=== PATIENT | female | born 1985 | race Caucasian/White ===

== ENCOUNTER → 2023-08-12 | Emergency (ER) | payer BC ==
--- OUTSIDE RECORDS SUMMARY | 2023-08-12 18:16 | XMS REPORT | Continuity of Care Document ---
Author Name Unknown Address [address] [facility] [address] [place] [address] [facility] thconnect Address [address] [facility]. [address] [place] [address] Care Team Providers Care Speech Pathology Supervisor Name Role Phone Ana Martin MD Primary Care Physician [phone] Ana Martin MD Attending Clinician [phone] Doctor Unassigned, [place] Attending Clinician U augieailANA Gipson Attending Clinician Unavailable EMMANUEL SCHULZ Attending Clinician EMMANUEL Berg Attending Clinician UnavailHaley Colmenares Attending Clinician Unavailable Haley Grayson Attending Clinician [phone] King DIVINE MD, James C Attending Clinician [phone] Unknown, Attending Attending Clinician ANA Mari III Attending Clinician UnavailJanki Barfield RN Attending Clinician Unavailable HIREN STEPHENSON Attending Clinician Hiren Hernandez Attending Clinician [phone] Marely Martinez Attending Clinician [phone] Johann Morris-[facility] Attending Clinician Becki Shaikh Attending Clinician [phone] BECKI RODRIGEZ Attending Clinician Jonelle brantley Payers Payer Name Policy Type Policy Number Effective Date Expirati on Date Source [facility] [id number] 2021 00:00:00 Problems Condition Name Condition Details Condition Category Status Onset Date Resolution Date Last Treatment Date Treating Clinician Comments Source Secondary hypertensi on Secondary hypertensi on Disease Active 02-04 00:00: 00 [facility] Morbid obesity with body mass index of 40.0-49.9 Morbid obesity with body mass index of 40.0-49.9 Disease Active 08-25 00:00: 00 [facility] Allergies, Adverse Reactions, Alerts Allergy Name Allergy Type Status Severity Reaction(s) Onset Date Inactive Date Treating Clinician Comments Source NO KNOWN ALLERGIE S Drug Class Active [facility] Social History Social Habit Start Date Stop Date Quantity Comments Source [facility] use and exposure 2023-06-24 00:00:00 2023-06-24 00:00:00 Smokeless tobacco non-user [facility] Alcohol intake 2023-06-24 00:00:00 2023-06-24 00:00:00 Ex-drinker (finding) [facility] History of Social function 2023-06-24 00:00:00 2023-06-24 00:00:00 [facility] Exposure to SARS-CoV-2 (event) 2022-06-25 00:00:00 2022-07-05 12:03:00 Not sure [facility] Sex Assigned At 1985 00:00:00 1985 00:00:00 [facility] Smoking Status Start Date Stop Date Source Never smoked tobacco [facility] Medications Ordered Medication Name Filled Medication Name Start Date Stop Date Current Medication? Ordering Clinician Indication Dosage Frequency Signature (SIG) Comments Components Source hydroCHLORO thiazide 25 mg tablet 2022-08 00:00: 00 Yes [id number] 25mg Take 1 tablet by mouth in the morning. [facility] ferrous sulfate 325 mg (65 mg iron) EC tablet 2022-08 00:00: 00 Yes 325mg Take 1 tablet by mouth in the morning and 1 tablet at noon and 1 tablet in the evening. Take with meals. [facility] ferrous sulfate 325 mg (65 mg iron) EC tablet 2022-08 00:00: 00 Yes 325mg Take 1 tablet by mouth in the morning and 1 tablet at noon and 1 tablet in the evening. Take with meals. [facility] ferrous sulfate 325 mg (65 mg iron) EC tablet 2022-08 00:00: 00 Yes 325mg Take 1 tablet by mouth in the morning and 1 tablet at noon and 1 tablet in the evening. Take with meals. [facility] ferrous sulfate 325 mg (65 mg iron) EC tablet 2022-08 00:00: 00 Yes 325mg Take 1 tablet by mouth in the morning and 1 tablet at noon and 1 tablet in the evening. Take with meals. [facility] ferrous sulfate 325 mg (65 mg iron) EC tablet 2022-08 00:00: 00 Yes 325mg Take 1 tablet by mouth in the morning and 1 tablet at noon and 1 tablet in the evening. Take with meals. [facility] hydroCHLORO thiazide 25 mg tablet 08-24 00:00: 00 Yes [id number] TAKE 1 TABLET EVERY DAY [facility] hydroCHLORO thiazide 25 mg tablet 0 08-24 00:00: 00 Yes [id number] TAKE 1 TABLET EVERY DAY [facility] hydroCHLORO thiazide 25 mg tablet 0 08-24 00:00: 00 Yes [id number] TAKE 1 TABLET EVERY DAY [facility] hydroCHLORO thiazide 25 mg tablet 0 08-24 00:00: 00 Yes [id number] TAKE 1 TABLET EVERY DAY [facility] hydroCHLORO thiazide 25 mg tablet 0 08-24 00:00: 00 Yes [id number] TAKE 1 TABLET EVERY DAY [facility] hydroCHLORO thiazide 25 mg tablet 0 08-24 00:00: 00 Yes [id number] TAKE 1 TABLET EVERY DAY [facility] hydroCHLORO thiazide 25 mg tablet 0 08-24 00:00: 00 Yes [id number] TAKE 1 TABLET EVERY DAY [facility] hydroCHLORO thiazide 25 mg tablet 0 08-24 00:00: 00 Yes [id number] TAKE 1 TABLET EVERY DAY [facility] hydroCHLORO thiazide 25 mg tablet 0 08-24 00:00: 00 07-22 00:00 :00 No [id number] TAKE 1 TABLET EVERY DAY [facility] Methylpredn isolone 4 mg tablet 2021-08-17 00:00: 00 07-11 05:59 :00 No [id number] 4mg Take 1 tablet by mouth every 12 (twelve) hours for 5 days. [facility] nirmatrelvi r-ritonavir (PAXLOVID, EUA,) 150 mg x 2- 100 mg tablet 02-06 00:00: 00 Yes [id number] 3{tbl} Take 3 tablets by mouth 2 (two) times daily. [facility] nirmatrelvi r-ritonavir (PAXLOVID, EUA,) 150 mg x 2- 100 mg tablet 02-06 00:00: 00 Yes [id number] 3{tbl} Take 3 tablets by mouth 2 (two) times daily. [facility] nirmatrelvi r-ritonavir (PAXLOVID, EUA,) 150 mg x 2- 100 mg tablet 02-06 00:00: 00 07-05 00:00 :00 No [id number] 3{tbl} Take 3 tablets by mouth 2 (two) times daily. [facility] benzonatate 200 mg capsule 02-04 00:00: 00 02-15 04:59 :00 No [id number] 200mg Take 1 capsule by mouth 3 (three) times daily as needed for Cough for up to 10 days. [facility] benzonatate 200 mg capsule 02-04 00:00: 00 02-15 04:59 :00 No [id number] 200mg Take 1 capsule by mouth 3 (three) times daily as needed for Cough for up to 10 days. [facility] benzonatate 200 mg capsule 02-04 00:00: 00 02-15 04:59 :00 No [id number] 200mg Take 1 capsule by mouth 3 (three) times daily as needed for Cough for up to 10 days. [facility] hydroCHLORO thiazide 25 mg tablet 5-19 00:00: 00 Yes [id number] 25mg Take 1 tablet by mouth daily. [facility] hydroCHLORO thiazide 25 mg tablet 2021-0 -19 00:00: 00 Yes [id number] 25mg Take 1 tablet by mouth daily. [facility] hydroCHLORO thiazide 25 mg tablet 2021-0 5-19 00:00: 00 Yes [id number] 25mg Take 1 tablet by mouth daily. [facility] hydroCHLORO thiazide 25 mg tablet 2021-0 5-19 00:00: 00 Yes [id number] 25mg Take 1 tablet by mouth daily. [facility] hydroCHLORO thiazide 25 mg tablet 0 19 00:00: 00 Yes [id number] 25mg Take 1 tablet by mouth daily. [facility] hydroCHLORO thiazide 25 mg tablet 0 19 00:00: 00 Yes [id number] 25mg Take 1 tablet by mouth daily. [facility] hydroCHLORO thiazide 25 mg tablet 0 19 00:00: 00 08-24 00:00 :00 No [id number] 25mg Take 1 tablet by mouth daily. [facility] hydroCHLORO thiazide 25 mg tablet 0 3-02 00:00: 00 01-04 00:00 :00 No [id number] 25mg Take 1 tablet by mouth daily. [facility] ESTARYLLA 0.25-35 mg-mcg per tablet 2020-08 00:00: 00 Yes 1{tbl} Take 1 tablet by mouth every morning. [facility] ESTARYLLA 0.25-35 mg-mcg per tablet 2020-08- 00:00: 00 Yes 1{tbl} Take 1 tablet by mouth every morning. [facility] ESTARYLLA 0.25-35 mg-mcg per tablet 2020-08 00:00: 00 Yes 1{tbl} Take 1 tablet by mouth every morning. [facility] ESTARYLLA 0.25-35 mg-mcg per tablet 2020-08 2- 00:00: 00 Yes 1{tbl} Take 1 tablet by mouth every morning. [facility] ESTARYLLA 0.25-35 mg-mcg per tablet 2020-08 00:00: 00 Yes 1{tbl} Take 1 tablet by mouth every morning. [facility] 0.25-35 mg-mcg per tablet 2020-08 00:00: 00 Yes 1{tbl} Take 1 tablet by mouth every morning. [facility] ESTARYLLA 0.25-35 mg-mcg per tablet 2020-08 00:00: 00 Yes 1{tbl} Take 1 tablet by mouth every morning. [facility] ESTARYLLA 0.25-35 mg-mcg per tablet 2020-08 00:00: 00 Yes 1{tbl} Take 1 tablet by mouth every morning. [facility] 0.25-35 mg-mcg per tablet 2020-08 00:00: 00 Yes 1{tbl} Take 1 tablet by mouth every morning. [facility] EST[facility]LLA 0.25-35 mg-mcg per tablet 2020-08 00:00: 00 Yes 1{tbl} Take 1 tablet by mouth every morning. [facility] EST[facility]A 0.25-35 mg-mcg per tablet 2020-08 00:00: 00 Yes 1{tbl} Take 1 tablet by mouth every morning. [facility] ESTARYLLA 0.25-35 mg-mcg per tablet 2020-08 00:00: 00 Yes 1{tbl} Take 1 tablet by mouth every morning. [facility] ESTARYLLA 0.25-35 mg-mcg per tablet 2020-08 00:00: 00 06-24 00:00 :00 No 1{tbl} Take 1 tablet by mouth every morning. [facility] ESTARYLLA 0.25-35 mg-mcg per tablet 2020-08 00:00: 00 06-24 00:00 :00 No 1{tbl} Take 1 tablet by mouth every morning. [facility] Immunizations Ordered Immunization Name Filled Immunization Name Date Status Comments Source SARS-COV-2 COVID-19 MODERNA VACCINE 2021-06-10 00:00:00 Completed [facility] SARS-COV-2 COVID-19 MODERNA VACCINE 2021-06-10 00:00:00 Completed [facility] SARS-COV-2 COVID-19 MODERNA VACCINE 2021-06-10 00:00:00 Completed [facility] SARS-COV-2 COVID-19 MODERNA VACCINE 2021-06-10 00:00:00 Completed [facility] SARS-COV-2 COVID-19 MODERNA 12+ YRS VACCINE 2021-06-10 00:00:00 Completed [facility] SARS-COV-2 COVID-19 MODERNA 12+ YRS VACCINE 2021-06-10 00:00:00 Completed [facility] SARS-COV-2 COVID-19 MODERNA 12+ YRS VACCINE 2021-06-10 00:00:00 Completed [facility] SARS-COV-2 COVID-19 MODERNA 12+ YRS VACCINE 2021-06-10 00:00:00 Completed [facility] SARS-COV-2 COVID-19 MODERNA 12+ YRS VACCINE 2021-06-10 00:00:00 Completed [facility] Influenza Virus Vaccine Quad IM, Preserv and ABX Free 6 MO-64 YRS 2021-05-19 00:00:00 Completed [facility] Influenza Virus Vaccine Quad IM, Preserv and ABX Free 6 MO-64 YRS 2021-05-19 00:00:00 Completed [facility] Influenza Virus Vaccine Quad IM, Preserv and ABX Free 6 MO-64 YRS 2021-05-19 00:00:00 Completed [facility] Influenza Virus Vaccine Quad IM, Preserv and ABX Free 6 MO-64 YRS 2021-05-19 00:00:00 Completed [facility] Influenza Virus Vaccine Quad IM, Preserv and ABX Free 6 MO-64 YRS 2021-05-19 00:00:00 Completed [facility] Influenza Virus Vaccine Quad IM, Preserv and ABX Free 6 MO-64 YRS 2021-05-19 00:00:00 Completed [facility] Influenza Virus Vaccine Quad IM, Preserv and ABX Free 6 MO-64 YRS 2021-05-19 00:00:00 Completed [facility] Influenza Virus Vaccine Quad IM, Preserv and ABX Free 6 MO-64 YRS 2021-05-19 00:00:00 Completed [facility] Influenza Virus Vaccine Quad IM, Preserv and ABX Free 6 MO-64 YRS 2021-05-19 00:00:00 Completed [facility] SARS-COV-2 COVID-19 MODERNA VACCINE 2020-10-06 00:00:00 Completed [facility] SARS-COV-2 COVID-19 MODERNA VACCINE 2020-10-06 00:00:00 Completed [facility] SARS-COV-2 COVID-19 MODERNA VACCINE 2020-10-06 00:00:00 Completed [facility] SARS-COV-2 COVID-19 MODERNA VACCINE 2020-10-06 00:00:00 Completed [facility] SARS-COV-2 COVID-19 MODERNA 12+ YRS VACCINE 2020-10-06 00:00:00 Completed [facility] SARS-COV-2 COVID-19 MODERNA 12+ YRS VACCINE 2020-10-06 00:00:00 Completed [facility] SARS-COV-2 COVID-19 MODERNA 12+ YRS VACCINE 2020-10-06 00:00:00 Completed [facility] SARS-COV-2 COVID-19 MODERNA 12+ YRS VACCINE 2020-10-06 00:00:00 Completed [facility] SARS-COV-2 COVID-19 MODERNA 12+ YRS VACCINE 2020-10-06 00:00:00 Completed [facility] SARS-COV-2 COVID-19 MODERNA VACCINE 2020-08-20 00:00:00 Completed [facility] SARS-COV-2 COVID-19 MODERNA VACCINE 2020-08-20 00:00:00 Completed [facility] SARS-COV-2 COVID-19 MODERNA VACCINE 2020-08-20 00:00:00 Completed [facility] SARS-COV-2 COVID-19 MODERNA VACCINE 2020-08-20 00:00:00 Completed [facility] SARS-COV-2 COVID-19 MODERNA 12+ YRS VACCINE 2020-08-20 00:00:00 Completed [facility] SARS-COV-2 COVID-19 MODERNA 12+ YRS VACCINE 2020-08-20 00:00:00 Completed [facility] SARS-COV-2 COVID-19 MODERNA 12+ YRS VACCINE 2020-08-20 00:00:00 Completed [facility] SARS-COV-2 COVID-19 MODERNA 12+ YRS VACCINE 2020-08-20 00:00:00 Completed [facility] SARS-COV-2 COVID-19 MODERNA 12+ YRS VACCINE 2020-08-20 00:00:00 Completed [facility] Influenza Virus Vaccine Quad IM, Preserv and ABX Free 6 MO-64 YRS (FLUCELVAX) Unknown Completed [facility] SARS-COV-2 COVID-19 MODERNA 12+ YRS VACCINE Unknown Completed [facility] SARS-COV-2 COVID-19 MODERNA 12+ YRS VACCINE Unknown Completed [facility] SARS-COV-2 COVID-19 MODERNA 12+ YRS VACCINE Unknown Completed [facility] Influenza Virus Vaccine Quad IM, Preserv and ABX Free 6 MO-64 YRS (FLUCELVAX) Unknown Completed [facility] SARS-COV-2 COVID-19 MODERNA 12+ YRS VACCINE Unknown Completed [facility] SARS-COV-2 COVID-19 MODERNA 12+ YRS VACCINE Unknown Completed [facility] SARS-COV-2 COVID-19 MODERNA 12+ YRS VACCINE Unknown Completed [facility] Influenza Virus Vaccine Quad IM, Preserv and ABX Free 6 MO-64 YRS (FLUCELVAX) Unknown Completed [facility] SARS-COV-2 COVID-19 MODERNA 12+ YRS VACCINE Unknown Completed [facility] SARS-COV-2 COVID-19 MODERNA 12+ YRS VACCINE Unknown Completed [facility] SARS-COV-2 COVID-19 MODERNA 12+ YRS VACCINE Unknown Completed [facility] Influenza Virus Vaccine Quad IM, Preserv and ABX Free 6 MO-64 YRS (FLUCELVAX) Unknown Completed [facility] SARS-COV-2 COVID-19 MODERNA 12+ YRS VACCINE Unknown Completed [facility] SARS-COV-2 COVID-19 MODERNA 12+ YRS VACCINE Unknown Completed [facility] SARS-COV-2 COVID-19 MODERNA 12+ YRS VACCINE Unknown Completed [facility] Influenza Virus Vaccine Quad IM, Preserv and ABX Free 6 MO-64 YRS (FLUCELVAX) Unknown Completed [facility] SARS-COV-2 COVID-19 MODERNA 12+ YRS VACCINE Unknown Completed [facility] SARS-COV-2 COVID-19 MODERNA 12+ YRS VACCINE Unknown Completed [facility] SARS-COV-2 COVID-19 MODERNA 12+ YRS VACCINE Unknown Completed [facility] Influenza Virus Vaccine Quad IM, Preserv and ABX Free 6 MO-64 YRS (FLUCELVAX) Unknown Completed [facility] SARS-COV-2 COVID-19 MODERNA 12+ YRS VACCINE Unknown Completed [facility] SARS-COV-2 COVID-19 MODERNA 12+ YRS VACCINE Unknown Completed [facility] SARS-COV-2 COVID-19 MODERNA 12+ YRS VACCINE Unknown Completed [facility] Influenza Virus Vaccine Quad IM, Preserv and ABX Free 6 MO-64 YRS (FLUCELVAX) Unknown Completed [facility] SARS-COV-2 COVID-19 MODERNA 12+ YRS VACCINE Unknown Completed [facility] SARS-COV-2 COVID-19 MODERNA 12+ YRS VACCINE Unknown Completed [facility] SARS-COV-2 COVID-19 MODERNA 12+ YRS VACCINE Unknown Completed [facility] Influenza Virus Vaccine Quad IM, Preserv and ABX Free 6 MO-64 YRS (FLUCELVAX) Unknown Completed [facility] SARS-COV-2 COVID-19 MODERNA 12+ YRS VACCINE Unknown Completed [facility] SARS-COV-2 COVID-19 MODERNA 12+ YRS VACCINE Unknown Completed [facility] SARS-COV-2 COVID-19 MODERNA 12+ YRS VACCINE Unknown Completed [facility] Vital Signs Vital Name Observation Time Observation Value Comments S maritzabarrett Systolic blood pressure 2023-06-24 21:59:00 134 mm[Hg] [facility] Diastolic blood pressure 2023-06-24 21:59:00 72 mm[Hg] [facility] Heart rate 2023-06-24 21:59:00 70 /min [facility] Body temperature 2023-06-24 21:59:00 36.67 [facility] Respiratory rate 2023-06-24 21:59:00 18 /min [facility] Body height 2023-06-24 21:59:00 167.6 cm [facility] Body weight 2023-06-24 21:59:00 131.997 kg [facility] BMI 2023-06-24 21:59:00 46.97 kg/m2 [facility] Systolic blood pressure 2023-02-22 02:24:00 164 mm[Hg] [facility] Diastolic blood pressure 2023-02-22 02:24:00 94 mm[Hg] [facility] Heart rate 2023-02-22 02:24:00 85 /min [facility] Body temperature 2023-02-22 02:24:00 36.61 [facility] Respiratory rate 2023-02-22 02:24:00 16 /min [facility] Body height 2023-02-22 02:24:00 167.6 cm [facility] Body weight 2023-02-22 02:24:00 127.007 kg [facility] BMI 2023-02-22 02:24:00 45.19 kg/m2 [facility] Oxygen saturation in Arterial blood by Pulse oximetry 2023-02-22 02:24:00 97 /min [facility] Systolic blood pressure 2022-07-05 18:09:00 140 mm[Hg] [facility] Diastolic blood pressure 2022-07-05 18:09:00 92 mm[Hg] [facility] Heart rate 2022-07-05 18:06:00 83 /min [facility] Body temperature 2022-07-05 18:06:00 36.83 [facility] Respiratory rate 2022-07-05 18:06:00 19 /min [facility] Body height 2022-07-05 18:06:00 167.6 cm [facility] Body weight 2022-07-05 18:06:00 123.067 kg [facility] BMI 2022-07-05 18:06:00 43.79 kg/m2 [facility] Oxygen saturation in Arterial blood by Pulse oximetry 2022-07-05 18:06:00 98 /min [facility] Systolic blood pressure 2022-02-04 14:10:00 163 mm[Hg] [facility] Diastolic blood pressure 2022-02-04 14:10:00 104 mm[Hg] [facility] Heart rate 2022-02-04 14:10:00 103 /min [facility] Body temperature 2022-02-04 14:10:00 37.28 [facility] Respiratory rate 2022-02-04 14:10:00 18 /min [facility] Body height 2022-02-04 14:10:00 167.6 cm [facility] Body weight 2022-02-04 14:10:00 123.378 kg [facility] BMI 2022-02-04 14:10:00 43.90 kg/m2 [facility] Oxygen saturation in Arterial blood by Pulse oximetry 2022-02-04 14:10:00 98 /min [facility] Systolic blood pressure 2022-01-04 15:14:00 130 mm[Hg] [facility] Diastolic blood pressure 2022-01-04 15:14:00 68 mm[Hg] [facility] Heart rate 2022-01-04 15:14:00 66 /min [facility] Body temperature 2022-01-04 15:14:00 36.56 Gar[facility] Respiratory rate 2022-01-04 15:14:00 18 /min [facility] Body weight 2022-01-04 15:14:00 121.11 kg [facility] BMI 2022-01-04 15:14:00 43.09 kg/m2 [facility] Procedures Procedure Date / Time Performed Performing Clinicia n Source EXTERNAL PROVIDER RECORDS 2023-07-16 06:01:00 Doctor Unassigned, [place] [facility] EXTERNAL PROVIDER RECORDS 2023-06-27 06:01:00 Doctor Unassigned, [place] [facility] NOTICE OF PRIVACY PRACTICES 2023-02-22 02:15:02 Doctor Unassigned, [place] [facility] CONSENT/REFUSAL FOR DIAGNOSIS AND TREATMENT 2023-02-22 02:14:12 Doctor Unassigned, [place] [facility] POCT MOLECULAR FLU 2022-07-05 18:16:00 Unknown, Attend ing [facility] POCT MOLECULAR STREP 2022-07-05 18:15:00 Unknown, Atte hortenciaing [facility] Encounters Start Date/Time End Date/Time Encounter Type Admission Type Attending [facility] Care Facility Care Department Encounter ID Source 2023-07-22 00:00:00 2023-07-22 00:00:00 [facility]ill [facility] [id number] 350.1.13.10 4.2.7.2.686 [id number] [facility] 2023-07-16 00:00:00 2023-07-16 00:00:00 Orders Only Doctor Unassigned, [place] [facility] 1.840.114 350.1.13.10 4.2.7.2.686 [id number] [facility] 2023-06-27 00:00:00 2023-06-27 00:00:00 Orders Only Doctor Unassigned, [place] [facility] [id number] 350.1.13.10 4.2.7.2.686 [id number] [facility] 2023-06-24 16:15:00 2023-06-24 16:45:00 Office Visit Ana Martin [facility] 1.840.114 350.1.13.10 4.2.7.2.686 [id number] [facility] 2023-06-24 16:15:00 2023-06-24 16:15:00 Outpatient ANA TOM [facility] [id number] [facility] 2023-06-24 09:30:00 2023-06-24 09:30:00 Outpatient EMMANUEL THAO CHERYAL [facility] [id number] [facility] 2023-04-29 00:00:00 2023-04-29 00:00:00 Patient Secure Ana Garcia [facility] 1.114 350.1.13.10 4.2.7.2.686 [id number] [facility] 2023-02-21 21:27:00 2023-02-21 22:06:00 Emergency X Haley SONI [facility] ERT [id number] [facility] 2023-02-21 21:27:00 2023-02-21 22:06:00 Emergency Haley Soni [facility] 1..114 350.1.13.10 4.2.7.2.686 [id number] [facility] 2023-02-21 00:00:00 2023-02-21 00:00:00 Orders Only Doctor Unassigned, [place] [facility] 1..114 350.1.13.10 4.2.7.2.686 [id number] [facility] 2022-08-24 00:00:00 2022-08-24 00:00:00 Refill Ana Martin [facility] 1.114 350.1.13.10 4.2.7.2.686 [id number] [facility] 2022-07-05 11:20:00 2022-07-05 11:40:00 Urgent Care Ana Long, Attending [facility] 1.114 350.1.13.10 4.2.7.2.686 [id number] [facility] 2022-07-05 11:20:00 2022-07-05 11:20:00 Outpatient ANA ALICIA III [facility] [id number] [facility] 2022-07-05 00:00:00 2022-07-05 00:00:00 Letter (Out) Ana Long [facility] 1.84114 350.1.13.10 4.2.7.2.686 [id number] [facility] 2022-02-05 00:00:00 2022-02-05 00:00:00 Letter (Out) Janki Tirado [facility] 1.114 350.1.13.10 4.2.7.2.686 [id number] [facility] 2022-02-05 00:00:00 2022-02-05 00:00:00 Patient Secure Msg Ana Martin [facility] 1.114 350.1.13.10 4.2.7.2.686 [id number] [facility] 2022-02-04 09:20:00 2022-02-04 09:47:43 Outpatient R HIREN STEPHENSON [facility] [id number] [facility] 2022-02-04 09:20:00 2022-02-04 09:47:43 Urgent Care Hiren Stephenson [facility] 1.84114 350.1.13.10 4.2.7.2.686 [id number] [facility] 2022-01-04 10:15:00 2022-01-04 10:37:54 Outpatient R ANA MARTIN [facility] [id number] [facility] 2022-01-04 10:15:00 2022-01-04 10:37:54 Office Visit [facility] 1.114 350.1.13.10 [id number] [id number] [facility] 2021-12-19 00:00:00 2021-12-19 00:00:00 Refill [facility] 1.840.114 350.1.13.10 4.2.7.2.686 [id number] [facility] 2021-11-22 08:00:00 2021-11-22 08:00:00 Outpatient R ANA MARTIN [facility] [id number] [facility] 2021-11-22 00:00:00 2021-11-22 00:00:00 Patient Secure Msg Ana [facility] 1.840.114 350.1.13.10 4.2.7.2.686 [id number] [facility] 2021-10-30 00:00:00 2021-10-30 00:00:00 Orders Only Doctor Unassigned, [place] [facility] 1.840.114 350.1.13.10 4.2.7.2.686 [id number] [facility] 2021-10-18 08:45:00 2021-10-18 09:32:20 Outpatient ANA TOM [facility] [id number] [facility] 2021-10-18 08:45:00 2021-10-18 09:32:20 Office Visit Ana [facility] 1.840.114 350.1.13.10 4.2.7.2.686 [id number] [facility] 2021-09-27 08:45:00 2021-09-27 08:45:00 Outpatient ANA TOM [facility] [id number] [facility] 2021-08-29 00:00:00 2021-08-29 00:00:00 Patient Secure Msg Doctor Unassigned, [place] [facility] 1.840.114 350.1.13.10 4.2.7.2.686 [id number] [facility] 2021-08-25 09:30:00 2021-08-25 09:45:00 Tax Professional Visit Draw, [facility] Becki Rodrigez [facility] [id number] 350.1.13.10 4.2.7.2.686 [id number] [facility] 2021-08-25 08:30:00 2021-08-25 09:13:50 Outpatient R BECKI RODRIGEZ [facility] [id number] [facility] 2021-08-25 08:30:00 2021-08-25 09:13:50 Office Visit Becki Rodrigez [facility] 1.840.114 350.1.13.10 4.2.7.2.686 [id number] [facility] 2021-08-25 08:30:00 2021-08-25 09:13:50 Outpatient R BECKI RODRIGEZ [facility] [id number] [facility] 2021-08-25 00:00:00 2021-08-25 00:00:00 Letter (Out) Doctor Unassigned, [place] [facility] 1.840.114 350.1.13.10 4.2.7.2.686 [id number] [facility] 2021-08-25 00:00:00 2021-08-25 00:00:00 Telephone Becki Rodrigez [facility] 1.284.114 350.1.13.10 [id number] [id number] [facility] Results Test Description Test Time Test Comments Results Result Co mments Source [facility] [id number] 18:22:58* Test Item Value Reference Range Interpretation Comme nts POCT Molecular Strep (test c ode = 60523-0) Negative Negative Lab Interpretation (test cod e = 24354-1) Normal [facility]
[2023-08-12 19:40] LABS: Absolute Lymphocytes (CBC) 3.6 K/uL (0.7-4.9); Lymphocytes % 28.6 % (15.3-44.8); MCV 70.8 fL (80-100); MPV 7.5 fL (7.6-11.3); Platelets 424 thou/uL (152-406); RBC Red Blood Cell Count 4.52 M/uL (3.86-4.86)
[2023-08-12 19:59] LABS: Magnesium 2.3 mg/dL (1.6-2.4); Potassium 3.8 mEq/L (3.5-5.1)
--- NOTE | 2023-08-12 20:49 | RAD REPORT ---
[facility]06 [facility] CLINICAL HISTORY: Palpitations;Dyspnea COMPARISON: No comparisons TECHNIQUE: Portable AP view of the chest. FINDINGS: The lungs are clear. No pneumothorax or effusion. The cardiomediastinal contours are unre markable. IMPRESSION: No acute cardiopulmonary process.
--- NOTE | 2023-08-12 21:23 | ER ---
Nurse's Notes [facility] Name: Amina Record Age: 38 yrs Sex: Female : 1985 Arrival Date: 08/12/2023 Time: 18:12 Bed 11 Private MD: Diagnosis: Palpitations;Dyspnea Presentation: 08/12 18:29 Chief complaint: Patient states: PALPITATIONS x5 DAYS. Coronavirus screen: At this bp time, the client does not indicate any symptoms associated with coronavirus-19. Ebola Screen: No symptoms or risks identified at this time. Initial Sepsis Screen: Does the patient meet any 2 criteria? No. Patient's initial sepsis screen is negative. Does the patient have a suspected source of infection? No. Patient's initial sepsis screen is negative. Risk Assessment: Do you want to hurt yourself or someone else?. Onset of symptoms is unknown. 18:29 Method Of Arrival: Ambulatory bp 18:29 Acuity: DEAN 3 bp Triage Assessment: 18:30 General: Appears in no apparent distress. Behavior is cooperative, appropriate for age, bp anxious. Pain: Denies pain. Historical: - Allergies: 18:30 No Known Allergies; bp - Home Meds: 18:30 hydrochlorothiazide 25 mg Oral tablet daily [Active]; bp - PMHx: 18:30 Hypertensive disorder; Anemia; bp - Immunization history:: Adult Immunizations up to date. - Social history:: Smoking status: Patient denies any tobacco usage or history of. Screenin:15 [facility] ED Fall Risk Assessment (Adult) History of falling in the last 3 months, jw7 including since admission No falls in past 3 months (0 pts) Score/Fall Risk Level 0 - 2 = Low Risk Oriented to surroundings, Maintained a safe environment. Abuse screen: Denies threats or abuse. Denies injuries from another. Nutritional screening: No deficits noted. Tuberculosis screening: No symptoms or risk factors identified. Assessment: 19:15 General: Appears in no apparent distress. comfortable, Behavior is calm, cooperative. jw7 Pain: Denies pain. Neuro: Quick Agitation-Sedation Scale (RASS): 0 - Alert and Calm Level of Consciousness is awake, alert, obeys commands, Oriented to person, place, time, situation. Cardiovascular: Reports palpitations, Heart tones S1 S2 present Capillary refill < 3 seconds Clubbing of nail beds is absent JVD is absent Patient's skin is warm and dry. Rhythm is sinus rhythm Chest pain is denied. Respiratory: Airway is patent Trachea midline Respiratory effort is even, unlabored, Respiratory pattern is regular, symmetrical, Breath sounds are clear bilaterally. GI: No deficits noted. No signs and/or symptoms were reported involving the gastrointestinal system. : No deficits noted. No signs and/or symptoms were reported regarding the genitourinary system. EENT: No deficits noted. No signs and/or symptoms were reported regarding the EENT system. Derm: No deficits noted. No signs and/or symptoms reported regarding the dermatologic system. Musculoskeletal: No deficits noted. No signs and/or symptoms reported regarding the musculoskeletal system. 20:20 Reassessment: Patient appears in no apparent distress at this time. No changes from jw7 previously documented assessment. Patient and/or family updated on plan of care and expected duration. Pain level reassessed. Patient is alert, oriented x 3, equal unlabored respirations, skin warm/dry/pink. 21:26 Reassessment: Patient appears in no apparent distress at this time. No changes from jw7 previously documented assessment. Patient and/or family updated on plan of care and expected duration. Pain level reassessed. Patient is alert, oriented x 3, equal unlabored respirations, skin warm/dry/pink. 22:10 Reassessment: Patient appears in no apparent distress at this time. No changes from jw7 previously documented assessment. Patient and/or family updated on plan of care and expected duration. Pain level reassessed. Patient is alert, oriented x 3, equal unlabored respirations, skin warm/dry/pink. Vital Signs: 18:29 BP 162 / 95; Pulse 90; Resp 16; Temp 98; Pulse Ox 99% ; Weight 127.01 kg; Height 5 ft. bp 6 in. ; 19:15 BP 157 / 88; Pulse 86; Resp 18 S; Pulse Ox 98% on R/A; jw7 21:15 BP 134 / 78; Pulse 66; Resp 17 S; Pulse Ox 99% on R/A; jw7 22:00 BP 129 / 85; Pulse 68; Resp 18 S; Pulse Ox 99% on R/A; jw7 18:29 Body Mass Index 45.19 (127.01 kg, 167.64 cm) bp ED Course: 18:13 Patient arrived in ED. ts1 18:18 Savannah Carter FNP-C [facility] kb 18:18 Jazmin Garvey is Attending Physician. kb 18:30 Triage completed. bp 18:30 Arm band placed on. bp 19:10 Angela Haider, RN is Primary Nurse. jw7 19:15 Patient has correct armband on for positive identification. Bed in low position. Call jw7 light in reach. 19:30 Initial lab(s) drawn, by me, sent to lab. Inserted saline lock: 22 gauge in left jw7 antecubital area, using aseptic technique. Blood collected. 20:08 XRAY Chest (1 view) In Process Unspecified. EDMS 21:23 EKG done, by ED staff, reviewed by Savannah SAXENA. jw7 22:25 No provider procedures requiring assistance completed. IV discontinued, intact, jw7 bleeding controlled, No redness/swelling at site. Pressure dressing applied. 22:26 Provided Education on: discharge instruction. jw7 Administered Medications: No medications were administered Medication: 22:26 VIS not applicable for this client. jw7 Outcome: 21:22 Discharge ordered by MD. kb 22:25 Discharged to home ambulatory, with family, jw7 22:25 Condition: stable 22:25 Discharge instructions given to patient, Instructed on discharge instructions, follow up and referral plans. Demonstrated understanding of instructions, follow-up care, 22:26 Patient left the ED. jw7 Signatures: Dispatcher [employer] EDMS Savannah Carter FNP-C FNP-Ckb Peltier, Brian, RN RN bp Waits, Jodi, RN RN jw7 Colette Banks PAS PAS ts1
--- NOTE | 2023-08-12 21:23 | EDPHYS ---
Physician Documentation [facility] Name: Amina Record Age: 38 yrs Sex: Female : 1985 Arrival Date: 08/12/2023 Time: 18:12 Bed 11 Private MD: ED Physician Jazmin Garvey HPI: 08/12 18:55 This 38 yrs old Female presents to ER via Ambulatory with complaints of Palpitations. kb 18:55 Patient is a 38-year-old female with a history of anemia and hypertension who presents kb for palpitations and shortness of breath on exertion for the last 3 days. States she believes this is due to her chronic anemia. States she has very heavy periods and is under the care of a SHIFT SUPERVISOR trying to figure out the course of treatment.. Historical: - Allergies: 18:30 No Known Allergies; bp - Home Meds: 18:30 hydrochlorothiazide 25 mg Oral tablet daily [Active]; bp - PMHx: 18:30 Hypertensive disorder; Anemia; bp - Immunization history:: Adult Immunizations up to date. - Social history:: Smoking status: Patient denies any tobacco usage or history of. ROS: 18:55 Constitutional: Negative for fever, chills, and weight loss, kb 18:55 Cardiovascular: Positive for palpitations, 18:55 Respiratory: Positive for shortness of breath, 18:55 All other systems are negative, Exam: 18:55 Constitutional: This is a well developed, well nourished patient who is awake, alert, kb and in no acute distress. Head/Face: Normocephalic, atraumatic. ENT: Moist Mucous membranes Cardiovascular: Regular rate Respiratory: Respirations even and unlabored. No increased work of breathing. Talking in full sentences Abdomen/GI: Soft, non-tender. No distention Skin: Warm, dry with normal turgor. Normal color. MS/ Extremity: Pulses equal, no cyanosis. Neurovascular intact. Full, normal range of motion. Neuro: Awake and alert, GCS 15, oriented to person, place, time, and situation. Moves all extremities. Normal gait. Vital Signs: 18:29 BP 162 / 95; Pulse 90; Resp 16; Temp 98; Pulse Ox 99% ; Weight 127.01 kg; Height 5 ft. bp 6 in. ; 19:15 BP 157 / 88; Pulse 86; Resp 18 S; Pulse Ox 98% on R/A; jw7 21:15 BP 134 / 78; Pulse 66; Resp 17 S; Pulse Ox 99% on R/A; jw7 22:00 BP 129 / 85; Pulse 68; Resp 18 S; Pulse Ox 99% on R/A; jw7 18:29 Body Mass Index 45.19 (127.01 kg, 167.64 cm) bp MDM: 18:18 Patient medically screened. kb 18:56 Differential diagnosis: arrythmia, dehydration, stress disorder, anemia. Data reviewed: kb vital signs, nurses notes. 21:00 Consideration of Admission/Observation Escalation of care including kb admission/observation considered. admission considered for palpitations and shortness of breath, but lungs clear bilaterally, troponin normal with symptom onset 5 days ago, d-dimer normal, bnp normal, oxygen saturation 99-100% on room air. Test considered but Not performed: CT: CT chest for PE considered but d-dimer normal. Scoring Tools PERC Rule for PE Age >/= 50 No HR >/= 100 No O2 Sat Room Air < 95% No Unilateral leg swelling No Hemoptysis No Recent surgery or trauma </= 4 wks ago requiring treatment with general anesthesia No (0 pt) Prior PE or DVT No Hormone use (Oral contraceptives, hormone replacement or estrogenic hormones use in males or female patients No. Counseling: I had a detailed discussion with the patient and/or guardian regarding the historical points, exam findings, and any diagnostic results supporting the discharge/admit diagnosis, lab results, radiology results, the need for outpatient follow up, a family practitioner, to return to the emergency department if symptoms worsen or persist or if there are any questions or concerns that arise at home. 08/12 18:24 Order name: Basic Metabolic Panel; Complete Time: 19:59 kb 08/12 18:24 Order name: CBC with Diff; Complete Time: 19:46 kb 08/12 18:24 Order name: D-Dimer; Complete Time: 19:48 kb 08/12 18:24 Order name: Magnesium; Complete Time: 19:59 kb 08/12 18:24 Order name: NT PRO-BNP; Complete Time: 19:59 kb 08/12 18:24 Order name: Troponin HS; Complete Time: 19:59 kb 08/12 18:24 Order name: XRAY Chest (1 view); Complete Time: 20:54 kb 08/12 18:24 Order name: EKG; Complete Time: 18:25 kb 08/12 18:24 Order name: Cardiac monitoring; Complete Time: 19:30 kb 08/12 18:24 Order name: EKG - Nurse/Tech; Complete Time: 21:23 kb 08/12 18:24 Order name: IV Saline Lock; Complete Time: 19:30 kb 08/12 18:24 Order name: Labs collected and sent; Complete Time: 19:30 kb 08/12 18:24 Order name: O2 Per Protocol; Complete Time: 19:30 kb 08/12 18:24 Order name: O2 Sat Monitoring; Complete Time: 19:30 kb Administered Medications: No medications were administered Disposition Summary: 08/12/23 21:22 Discharge Ordered Notes: Location: Home kb Condition: Stable kb Diagnosis - Palpitations kb - Dyspnea kb Followup: kb - With: Emergency Department - When: As needed - Reason: Worsening of condition Followup: kb - With: Private Physician - When: 2 - 3 days - Reason: Recheck today's complaints, Continuance of care, Re-evaluation by your physician Discharge Instructions: - Discharge Summary Sheet kb - Shortness of Breath, Adult, [id number] kb - Palpitations, [id number] kb Forms: - Medication Reconciliation Form kb - Thank You Letter kb - Antibiotic Education kb - Prescription Opioid Use kb - Patient Portal Instructions kb - Leadership Thank You Letter kb - Work release form as6 Signatures: Dispatcher [employer] Savannah Irizarry, HEMANTH MCGINNISP-Ted Bustamante, RN RN bp
[2023-08-13 00:19] VITALS: BP 129/85; TEMP 98; O2SAT 99
--- NOTE | 2023-08-15 13:29 | EKG ---
Test Date: 2023-08-12 Test Time: 21:19:20 Dot Etcher: ARASELI MEASUREMENT RESULTS: Intervals: Rate: 71 AK: 140 QRSD: 74 QT: 412 QTc: 447 Switchback: P: 22 AK: 140 QRS: 2 T: 5 INTERPRETIVE STATEMENTS: Normal sinus rhythm Normal ECG No previous ECG available for comparison Electronically Signed On 08-15-23 13:23:05 C.O.D. CLERK by Gui Morgan
== END ==
LOC: ER 18:12
DX: R00.2 Palpitations (principal); R06.00 Dyspnea, unspecified; I10 Essential (primary) hypertension
CPT/HCPCS: 36415; 71045; 80048; 83735; 83880; 84484; 85025; 85379; 93005; 99284

== ENCOUNTER 2024-04-25 12:01 | Emergency (ER) | payer BC ==
[2024-04-25] MEDS ORDERED: NA CHLORIDE 0.9% 1,000 ML ONE (13:09)
[2024-04-25 13:14] LABS: Absolute Basophils 0.1 K/uL (0-0.5); Absolute Eosinophils 0.1 K/uL (0-0.5); Absolute Lymphocytes (CBC) 2.1 K/uL (0.7-4.9); Absolute Monocytes 0.6 K/uL (0.1-1.3); Absolute Neutrophil 9.1 K/uL (1.8-8.0); Basophils % 0.8 % (0-1.3); Hematocrit 28.4 % (36.0-45.0); Hemoglobin 8.5 g/dL (12.0-15.0); Lymphocytes % 17.5 % (15.3-44.8); MCH 18.3 pg (27.0-35.0); MCHC 29.8 g/dL (32.0-36.0); MCV 61.4 fL (80-100); MPV 8.6 fL (7.6-11.3); Monocytes % 4.7 % (3.3-12.3); Platelets 420 thou/uL (152-406); RBC Red Blood Cell Count 4.63 M/uL (3.86-4.86)
[2024-04-25 13:20] LABS: PT Prothrombin Time 12.7 SECONDS (9.4-12.5); Protime INR 1.14
[2024-04-25 13:32] LABS: ALT/SGPT 29 U/L (13-56); AST/SGOT 15 U/L (15-37); Albumin 3.8 g/dL (3.4-5.0); Albumin/Globulin Ratio 1.1 (1.1-1.8); Alkaline Phosphatase 93 U/L (45-117); BUN Blood Urea Nitrogen 13 mg/dL (7-18); Bicarbonate 25 mEq/L (21-32); Bilirubin Total 0.2 mg/dL (0.2-1.0); Globulin 3.5 g/dL (2.3-3.5); Glomerular Filtration Rate 87 ml/min (=/>90); Glucose Level 102 mg/dL (74-106); Magnesium 2.2 mg/dL (1.6-2.4); NT PRO-BNP 53 pg/mL (<125); Protein, Total 7.3 g/dL (6.4-8.2); Sodium Level 138 mEq/L (136-145); Troponin High Sensitivity 3.8 pg/mL (<58.9)
[2024-04-25 13:33] LABS: Bilirubin Direct < 0.2 mg/dL (0-0.2)
--- NOTE | 2024-04-25 14:20 | ER ---
Nurse's Notes [facility] Name: Amina Record Age: 38 yrs Sex: Female : 1985 Arrival Date: 04/25/2024 Time: 12:01 Bed 15 Private MD: Diagnosis: Syncope Near;Anemia, unspecified;Iron deficiency anemia secondary to blood loss (chronic);Diarrhea, unspecified Presentation: 04/25 12:28 Chief complaint: EMS states: syncopal episode while shopping. LOC. c/o dizziness that me1 has resolved, nausea and "feeling shaky". BGL 106. 20 g to LAC. Coronavirus screen: Vaccine status: Patient reports receiving the 2nd dose of the covid vaccine. Ebola Screen: No symptoms or risks identified at this time. Initial Sepsis Screen: Does the patient meet any 2 criteria? No. Patient's initial sepsis screen is negative. Does the patient have a suspected source of infection? No. Patient's initial sepsis screen is negative. Risk Assessment: Do you want to hurt yourself or someone else? Patient reports no desire to harm self or others. Onset of symptoms was April 25, 2024. 12:28 Method Of Arrival: EMS: [facility] or1 12:28 Acuity: DEAN 3 me1 Triage Assessment: 12:31 General: Appears comfortable, obese, well groomed, well developed, Behavior is calm, me1 cooperative, appropriate for age. Pain: Denies pain. EENT: No signs and/or symptoms were reported regarding the EENT system. Neuro: Level of Consciousness is awake, alert, obeys commands, Oriented to person, place, time, situation, Appropriate for age Reports dizziness, dizzy after syncopal episode but dizziness has resolved by arrival to ED. a syncopal episode. Cardiovascular: Patient's skin is warm and dry. Respiratory: Airway is patent Respiratory effort is even, unlabored, Respiratory pattern is regular, symmetrical. GI: Reports nausea. : No signs and/or symptoms were reported regarding the genitourinary system. Derm: Skin is intact, is healthy with good turgor, Skin is pink, warm \\T\\ dry. Musculoskeletal: No signs and/or symptoms reported regarding the musculoskeletal system. DIRECTOR FINANCIAL SYSTEMS: 12:31 LMP N/A - control method, Not me1 Historical: - Allergies: 12:31 Gluten Protein; me1 - PMHx: 12:31 Anemia; Hypertensive disorder; PCOS (Hypertensive disorder); me1 - Immunization history:: Adult Immunizations up to date. - Infectious Disease History:: Denies. - Social history:: Smoking status: Patient denies any tobacco usage or history of. Screenin:35 [facility] ED Fall Risk Assessment (Adult) History of falling in the last 3 months, me1 including since admission No falls in past 3 months (0 pts) Confusion or Disorientation No (0 pts) Intoxicated or Sedated Impaired Gait No (0 pts) Mobility Assist Device Used No (0 pt) Altered Elimination No (0 pt) Score/Fall Risk Level 0 - 2 = Low Risk Maintained a safe environment, Provided non-skid footwear, Hourly rounding (assess needs \\T\\ fall precautionary measures) done. Abuse screen: Denies threats or abuse. Nutritional screening: No deficits noted. Tuberculosis screening: No symptoms or risk factors identified. Assessment: 12:35 General: See triage assessment. . Neuro: Level of Consciousness is awake, alert, obeys or1 commands, Oriented to person, place, time, situation, Appropriate for age Photo Mask Pattern Generator are equal bilaterally Moves all extremities. Full function Gait is steady, Speech is normal, Facial symmetry appears normal, Pupils are PERRLA, Intact. Cardiovascular: Rhythm is regular. Vital Signs: 12:28 BP 118 / 64; Pulse 91; Resp 17; Temp 98.4; Pulse Ox 99% ; Weight 121.56 kg; Height 5 me1 ft. 6 in. ; Pain 0/10; 13:30 BP 111 / 61; Pulse 82; Resp 16; Pulse Ox 100% on R/A; me1 14:30 BP 113 / 65; Pulse 95; Resp 17; Temp 98.2; Pulse Ox 100% ; me1 12:28 Body Mass Index 43.26 (121.56 kg, 167.64 cm) me1 12:28 Pain Scale: Adult or1 ED Course: 12:28 Patient arrived in ED. me1 12:28 Anand Newsome MD is Attending Physician. [facility] 12:31 Triage completed. me1 12:31 Arm band placed on Patient placed in an exam room. me1 12:35 Patient has correct armband on for positive identification. Bed in low position. Call or1 light in reach. Side rails up X2. Provided Education on: POC. Verbalized understanding. . Client placed on continuous cardiac and pulse oximetry monitoring. NIBP monitoring applied. Pulse ox on. NIBP on. 12:35 No provider procedures requiring assistance completed. me1 12:35 Maintain EMS IV. Dressing intact. Good blood return noted. Site clean \\T\\ dry. Gauge \\T\\ me 1 site: 20g LAC. Flushed with 10 mL NS. 12:42 Racheal Sabillon, RN is Primary Nurse. me1 12:58 Inserted saline lock: 24 gauge in left forearm, using aseptic technique. me1 13:07 Initial lab(s) drawn, by me, sent to lab. oh1 13:08 EKG done, by ED staff, reviewed by Anand Newsome MD. oh1 13:10 Warm blanket given. oh1 13:20 XRAY Chest (1 view) In Process Unspecified. EDMS 13:26 CT Head Brain wo Cont In Process Unspecified. EDNJ 14:20 Cassie Renee MD is Referral Physician. [facility] 14:20 Ashley Rivers MD is Referral Physician. [facility] 15:01 IV discontinued, intact, bleeding controlled, No redness/swelling at site. Pressure me1 dressing applied. Administered Medications: 13:20 Drug: NS 0.9% IV 1000 ml IV at 1 bolus Per protocol; 1000 mL bolus Route: IV; Rate: 1 me1 bolus; Site: left antecubital; 14:38 Follow up: Response: No adverse reaction; IV Status: Completed infusion; IV Intake: me1 1000ml Medication: 12:35 VIS not applicable for this client. me1 Intake: 14:38 IV: 1000ml; Total: 1000ml. me1 Outcome: 14:20 Discharge ordered by . [facility] 15:01 Discharged to home ambulatory, with significant other, me1 15:01 Condition: stable 15:01 Discharge instructions given to patient, significant other, Instructed on discharge instructions, follow up and referral plans. medication usage, Demonstrated understanding of instructions, follow-up care, medications, Prescriptions given X 1, 15:02 Patient left the ED. me1 Signatures: Dispatcher [employer] Anand Araiza MD MD cha Eddleman, Michelle, RN RN me1 Ashley Jaimes oh1
--- NOTE | 2024-04-25 14:20 | EDPHYS ---
Physician Documentation [facility] Name: Amina Record Age: 38 yrs Sex: Female : 1985 Arrival Date: 04/25/2024 Time: 12:01 Bed 15 Private MD: ED Physician Anand Newsome HPI: 04/25 14:14 This 38 yrs old Female presents to ER via EMS with complaints of Syncope. olu 14:14 The patient has experienced near-syncope, almost passed out, felt dizzy, felt faint, olu felt generally weak. Onset: The symptoms/episode began/occurred just prior to arrival. Duration: This was a single episode, that lasted 2 second(s). Context: the episode(s) was witnessed, by family, . Associated injury: The patient did not suffer any apparent associated injury. Associated signs and symptoms: The patient has no apparent associated signs or symptoms. Current symptoms: Currently, the patient is not experiencing any symptoms. The patient has not experienced similar symptoms in the past. 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 - Infectious Disease History:: Denies. - Social history:: Smoking status: Patient denies any tobacco usage or history of. ROS: 14:15 Constitutional: Negative for fever, chills, and weight loss, Eyes: Negative for injury, olu pain, redness, and discharge, ENT: Negative for injury, pain, and discharge, Neck: Negative for injury, pain, and swelling, Cardiovascular: Negative for chest pain, palpitations, and edema, Respiratory: Negative for shortness of breath, cough, wheezing, and pleuritic chest pain, Abdomen/GI: Negative for abdominal pain, nausea, vomiting, diarrhea, and constipation, Back: Negative for injury and pain, : Negative for injury, bleeding, discharge, and swelling, MS/Extremity: Negative for injury and deformity, Skin: Negative for injury, rash, and discoloration, Psych: Negative for depression, anxiety, suicide ideation, homicidal ideation, and hallucinations, Allergy/Immunology: Negative for hives, rash, and allergies, Endocrine: Negative for neck swelling, polydipsia, polyuria, polyphagia, and marked weight changes, Hematologic/Lymphatic: Negative for swollen nodes, abnormal bleeding, and unusual bruising, 14:15 Neuro: Positive for near syncope, weakness, Exam: 14:15 Constitutional: This is a well developed, well nourished patient who is awake, alert, olu and in no acute distress. Head/Face: Normocephalic, atraumatic. Eyes: Pupils equal round and reactive to light, extra-ocular motions intact. Lids and lashes normal. Conjunctiva and sclera are non-icteric and not injected. Cornea within normal limits. Periorbital areas with no swelling, redness, or edema. ENT: Nares patent. No nasal discharge, no septal abnormalities noted. Tympanic membranes are normal and external auditory canals are clear. Oropharynx with no redness, swelling, or masses, exudates, or evidence of obstruction, uvula midline. Mucous membranes moist. Neck: Trachea midline, no thyromegaly or masses palpated, and no cervical lymphadenopathy. Supple, full range of motion without nuchal rigidity, or vertebral point tenderness. No Meningismus. Chest/axilla: Normal chest wall appearance and motion. Nontender with no deformity. No lesions are appreciated. Cardiovascular: Regular rate and rhythm with a normal S1 and S2. No gallops, murmurs, or rubs. Normal PMI, no JVD. No pulse deficits. Respiratory: Lungs have equal breath sounds bilaterally, clear to auscultation and percussion. No rales, rhonchi or wheezes noted. No increased work of breathing, no retractions or nasal flaring. Abdomen/GI: Soft, non-tender, with normal bowel sounds. No distension or tympany. No guarding or rebound. No evidence of tenderness throughout. Back: No spinal tenderness. No costovertebral tenderness. Full range of motion. Skin: Warm, dry with normal turgor. Normal color with no rashes, no lesions, and no evidence of cellulitis. MS/ Extremity: Pulses equal, no cyanosis. Neurovascular intact. Full, normal range of motion. Neuro: Awake and alert, GCS 15, oriented to person, place, time, and situation. Cranial nerves II-XII grossly intact. Motor strength 5/5 in all extremities. Sensory grossly intact. Cerebellar exam normal. Normal gait. Psych: Awake, alert, with orientation to person, place and time. Behavior, mood, and affect are within normal limits. 14:15 ECG was reviewed by the Attending Physician. Vital Signs: 12:28 BP 118 / 64; Pulse 91; Resp 17; Temp 98.4; Pulse Ox 99% ; Weight 121.56 kg; Height 5 me1 ft. 6 in. ; Pain 0/10; 13:30 BP 111 / 61; Pulse 82; Resp 16; Pulse Ox 100% on R/A; me1 14:30 BP 113 / 65; Pulse 95; Resp 17; Temp 98.2; Pulse Ox 100% ; me1 12:28 Body Mass Index 43.26 (121.56 kg, 167.64 cm) me1 12:28 Pain Scale: Adult me1 MDM: 12:28 Patient medically screened. olu 14:16 Differential diagnosis: Nonspecific abd pain, viral gastroenteritis, gastroenteritis. olu Differential Diagnosis: cardiac arrhythmia, drug effect, emotional response, GI bleed, , transient ischemic attack, vasovagal episode. Data reviewed: vital signs, nurses notes, lab test result(s), EKG, radiologic studies, CT scan. Consideration of Admission/Observation Escalation of care including admission/observation considered. I considered the following discharge prescriptions or medication management in the emergency department Medications were administered in the Emergency Department. See MAR. Independent interpretation of the following test(s) in the Emergency Department EKG: See my EKG interpretation above. Test considered but Not performed: Ultrasound no venous doppler. Historians other than the Patient: Spouse/Significant Other: well informed. Care significantly affected by the following chronic conditions: Hypertension, Obesity, pcos. Counseling: I had a detailed discussion with the patient and/or guardian regarding the historical points, exam findings, and any diagnostic results supporting the discharge/admit diagnosis, lab results, radiology results, the need for outpatient follow up, for definitive care, a family practitioner, a poultry feed supervisor, an OB/Gyne specialist. 04/25 12:52 Order name: Basic Metabolic Panel; Complete Time: 14: [facility] 04/25 12:52 Order name: CBC with Diff [facility] 04/25 12:52 Order name: LFT's; Complete Time: 14: [facility] 04/25 12:52 Order name: Magnesium; Complete Time: 14: [facility] 04/25 12:52 Order name: NT PRO-BNP; Complete Time: 14:09 [facility] 04/25 12:52 Order name: PT-INR; Complete Time: 14:09 [facility] 04/25 12:52 Order name: Troponin HS; Complete Time: 14:09 [facility] 04/25 12:52 Order name: PREGU [facility] 04/25 12:52 Order name: Urinalysis w/ reflexes [facility] 04/25 13:19 Order name: CBC Smear Scan [facility] 04/25 14:18 Order name: HCG, Quantitative [facility] 04/25 14:39 Order name: Urine Culture [facility] 04/25 12:52 Order name: XRAY Chest (1 view) [facility] 04/25 12:52 Order name: CT Head Brain wo Cont [facility] 04/25 12:52 Order name: EKG; Complete Time: 12:53 [facility] 04/25 12:52 Order name: Cardiac monitoring; Complete Time: 13:10 [facility] 04/25 12:52 Order name: EKG - Nurse/Tech; Complete Time: 13:10 [facility] 04/25 12:52 Order name: IV Saline Lock; Complete Time: 13:05 [facility] 04/25 12:52 Order name: Labs collected and sent; Complete Time: 13:10 [facility] 04/25 12:52 Order name: O2 Per Protocol; Complete Time: 13:05 [facility] 04/25 12:52 Order name: O2 Sat Monitoring; Complete Time: 13:05 [facility] EC:15 Rate is 73 beats/min. Rhythm is regular. QRS [place] is Normal. [place] interval is normal. QRS olu interval is normal. QT interval is normal. No Q waves. T waves are Normal. No ST changes noted. Clinical impression: Normal ECG and No evidence of ischemia. Interpreted by me. Reviewed by me. Administered Medications: 13:20 Drug: NS 0.9% IV 1000 ml IV at 1 bolus Per protocol; 1000 mL bolus Route: IV; Rate: 1 me1 bolus; Site: left antecubital; 14:38 Follow up: Response: No adverse reaction; IV Status: Completed infusion; IV Intake: me1 1000ml Disposition Summary: 04/25/24 14:20 Discharge Ordered Notes: Location: Home olu Problem: new olu Symptoms: have improved olu Condition: Stable olu Diagnosis - Syncope Near olu - Anemia, unspecified olu - Iron deficiency anemia secondary to blood loss (chronic) olu - Diarrhea, unspecified olu Followup: olu - With: Private Physician - When: 2 - 3 days - Reason: Recheck today's complaints, Continuance of care, Re-evaluation by your physician Followup: olu - With: Cassie Renee MD - When: 2 - 3 days - Reason: Recheck today's complaints, Re-evaluation by your physician Followup: olu - With: Ashley Rivers MD - When: 2 - 3 days - Reason: Recheck today's complaints, Re-evaluation by your physician Discharge Instructions: - Discharge Summary Sheet olu - Iron Deficiency Anemia, Adult olu - Anemia olu - Food Choices to Help Relieve Diarrhea, Adult olu - Diarrhea, Adult olu - Iron-Rich Diet olu - Near-Syncope olu - Weakness olu - Near-Syncope, Ogvy-fi-Sonp olu - Iron Deficiency Anemia, Adult, Rbch-oe-Dqtc olu Forms: - Medication Reconciliation Form olu - Antibiotic Education olu - Prescription Opioid Use olu - Patient Portal Instructions olu - Leadership Thank You Letter olu Prescriptions: - Ferrous Sulfate 325 mg (65 mg Iron) Oral Tablet - take 1 tablet ORAL route every 8 hours; 90 tablet; Refills: 0, Product olu Selection Permitted Signatures: Dispatcher [employer] EDMS Anand Newsome MD MD cha Eddleman, Michelle, RN RN me1 Corrections: (The following items were deleted from the chart) 12:53 12:53 BASIC METABOLIC PANEL+C.LAB.BRZ ordered. EDMS EDMS 12:53 12:53 CBC+H.LAB.BRZ ordered. EDMS EDMS 12:53 12:53 HEPATIC FUNCTION+C.LAB.BRZ ordered. EDMS EDMS 12:53 12:53 MAGNESIUM+C.LAB.BRZ ordered. EDMS EDMS 12:53 12:53 PROBNP+C.LAB.BRZ ordered. EDMS EDMS 12:53 12:53 PROTIME (+INR)+COAG.LAB.BRZ ordered. EDMS EDMS 12:53 12:53 Troponin High Sensitivity+C.LAB.BRZ ordered. EDMS EDMS 12:53 12:53 Test, Urine+UC.LAB.BRZ ordered. EDMS EDMS 12:53 12:53 Urinalysis+U.LAB.BRZ ordered. EDMS EDMS 12:53 12:53 Head Brain Wo Cont+CT.RAD.BRZ ordered. EDMS EDMS 14:42 14:14 TEST, SERUM+SC.LAB.[facility] ordered. EDMS EDMS
--- NOTE | 2024-04-25 14:21 | RAD REPORT ---
EXAM DESCRIPTION: CT - Head Brain Wo Cont - 04/25/2024 1:25 pm CLINICAL HISTORY: SYNCOPE COMPARISON: No comparisons TECHNIQUE: Noncontrast head CT images were obtained without IV contrast. Multiplanar reformats were generated and reviewed. All CT scans are performed using dose optimization technique as appropriate and may include automated exposure control or mA/KV adjustment according to patient size. FINDINGS: No intracranial hemorrhage, mass, or edema. Midline structures are unremarkable. Normal ventricular caliber for age. Guthrie-white matter differentiation is preserved, without evidence of acute infarct. No abnormal extra- axial fluid collections. Mastoid air cells and visualized portions of the paranasal sinuses are clear. No acute bony findings. IMPRESSION: No evidence of an acute intracranial process.
[2024-04-25 14:34] LABS: Specific Gravity 1.028 (1.005-1.030); Sqamous Epithelial <5 /HPF (None Seen); Urine Bacteria None Seen /HPF (<20); Urine Bilirubin NEGATIVE (Negative); Urine Blood 3+ (Negative); Urine Clarity Extremely Turbid (Clear); Urine Color Yellow (Yellow); Urine Culture Reflex Order REFLEXED; Urine Glucose NEGATIVE (Negative); Urine Ketones NEGATIVE (Negative); Urine Microscopic Reflex YN ORDER UMIC; Urine Mucus 3+ /HPF (None Seen); Urine Nitrite NEGATIVE (Negative); Urine Protein 1+ (Negative); Urine RBC >50 /HPF (None Seen); Urine Urobilinogen Normal (Normal); Urine pH 5.5 (5.0-7.0)
--- NOTE | 2024-04-25 14:36 | RAD REPORT ---
EXAM DESCRIPTION: RADChest Single View04/25/2024 1:18 pm CLINICAL HISTORY: COUGH COMPARISON: Chest Single View dated 08/12/2023 TECHNIQUE: Portable AP view of the chest. FINDINGS: The lungs are clear. No pneumothorax or effusion. The cardiomediastinal contours are unre markable. IMPRESSION: No acute cardiopulmonary process.
[2024-04-25 15:27] VITALS: BP 113/65; TEMP 98.2; O2SAT 100
[2024-04-25 17:51] LABS: Blood Morphology Comment NOTED (NOT SEEN); Platelet Estimate INCR; White Blood Cell Scan OK (OK)
[2024-04-25 17:52] LABS: Anisocytosis 2+; Poikilocytosis 1+
--- NOTE | 2024-04-27 17:04 | EKG ---
Test Date: 2024-04-25 Test Time: 12:49:57 Mechanism Inspector: YULI MEASUREMENT RESULTS: Intervals: Rate: 73 DE: 154 QRSD: 82 QT: 382 QTc: 420 [place]: P: 37 DE: 154 QRS: 3 T: 0 INTERPRETIVE STATEMENTS: Normal sinus rhythm Normal ECG Compared to ECG 08/12/2023 21:19:20 No significant changes Electronically Signed On 04-27-24 17:00:06 CDT by Gui Morgan
== END 2024-04-25 15:02 | disposition home or self-care (01) ==
LOC: ER 12:01
DX: R55 Syncope and collapse (principal); D50.0 Iron deficiency anemia secondary to blood loss (chronic); R19.7 Diarrhea, unspecified; I10 Essential (primary) hypertension
CPT/HCPCS: 93005; 87088; 85025; 81001; 87086; 80048; 36415; 83735; 81025; 85610; 80076; 84702; 87077; 87186; 84484; 83880; 70450; 71045; 96360; 99285; J7030